=== PATIENT | female | born 1960 ===

== ENCOUNTER 2025-02-14 16:50 | Emergency (ER) | payer OTHER, SELFPAY ==
[2025-02-14 17:26] LABS: % Basophils 0.3 % (0-2); % Eosinophils 0.3 % (0-6); % Immature Granulocytes 0.4 % (0-0.5); % Lymphocytes 30.9 % (20.5-51.1); % Monocytes 5.8 % (1.7-9.3); % Neutrophils 62.3 % (42.2-75.2); Absolute Lymphocytes 2.3 10^3/uL (1.2-3.4); Absolute Monocytes 0.4 10^3/uL (0.1-0.6); Absolute Neutrophils 4.7 10^3/uL (1.4-6.5); Hematocrit 39.5 % (37.0-47.0); Hemoglobin 13.7 g/dL (12.0-16.0); Mean Corp Hgb Conc. 34.7 g/dL (33.0-37.0); Mean Corpuscular Hgb 29.2 pg (27.0-31.0); Mean Corpuscular Volume 84.2 fL (81.0-99.0); Mean Platelet Volume 10.4 fL (7.4-10.4); Nucleated Red Blood Cells % 0 %; Platelet Count 245 10^3/uL (130-400); Red Blood Cell Count 4.69 10^6/uL (4.20-5.40); Red Cell Dist. Width 13.2 % (11.5-14.5); White Blood Cell Count 7.6 10^3/uL (4.8-10.8)
[2025-02-14 17:38] LABS: APTT 25.4 Sec (23.4-35.0)
[2025-02-14 17:44] LABS: ALT (SGPT) 24 U/L (0-35); AST (SGOT) 25 U/L (14-36); Albumin 4.6 g/dl (3.5-5.0); Alkaline Phosphatase 113 U/L (38-126); Blood Urea Nitrogen 18 mg/dl (7-17); Calcium 9.7 mg/dl (8.4-10.2); Carbon Dioxide 22 mmol/L (22-30); Chloride 109 mmol/L (98-107); Glucose 94 mg/dl (70-99); Potassium 3.9 mmol/L (3.5-5.1); Sodium 140 mmol/L (135-145); Total Bilirubin 0.6 mg/dl (0.2-1.3); Total Protein 7.1 g/dl (6.3-8.2); eGFR > 60.00
[2025-02-14 17:55] LABS: Troponin I 0.017 ng/ml
--- NOTE | 2025-02-14 18:50 | ED.GENMED ---
History of Present Illness
General
Chief Complaint: Chest Pain
Source: patient
Exam Limitations: none
Time Seen by Provider: 02/14/25 18:49
Nursing documentation reviewed up to this point in time: agreed with except (abdominal pain, not chest pain)
History of Present Illness
History of Present Illness:
65-year-old female with history of HTN, HLD states 10 a.m. sitting at desk at work, sudden onset pain wrapping around her entire mid abdomen and mid back, Ibuprofen 600 mg helped.
At 3:30 p.m pain returned, worse, screaming in pain, deep breaths made pain worse, 10/10, took Ibuprofen and now pain is 3/10. Denies n/v/d/c. Denies UTI symptoms. Denies fever/chills.
Past History
Past History
ED Past Medical History: HTN and Hypercholesterolemia
ED Past Surgical History: Other (cataract surgery)
Social History
Tobacco: Non-smoker
Alcohol: None
Living: alone
Employment: Employed
Review of Systems
Review of Systems
Allergies reviewed?: Yes
All Other Systems: ROS reviewed and negative except as documented in HPI and ROS
Constitutional: Denies fever or chills
Respiratory: Denies trouble breathing
Cardiac: Denies chest pain, diaphoresis or palpitations
ABD/GI: Reports abdominal pain (initially wrapped around entire torso, now in LLQ and left flank); Denies nausea, vomiting, diarrhea or constipated
: Denies dysuria, frequency, difficulty voiding or urgency
Musculoskeletal: Reports no symptoms
Skin: Reports no symptoms
Neurological: Reports no symptoms
Phy Exam
Physical Exam
Physical Exam:
GENERAL: No acute distress. A&Ox3.
CONSTITUTIONAL: Afebrile.
EYES: clear, conjunctivae normal
ENMT: moist mucus membranes
RESPIRATORY: Regular respirations, nonlabored, lungs clear.
CARDIOVASCULAR: Regular rate and rhythm, no murmurs, no rubs.
GI: Soft, mainly tender left lower quadrant, otherwise minimally tender generally about the abdomen, normal BS
MUSCULOSKELETAL: Moves with ease. Well perfused.
SKIN: Warm, dry, pink
PSYCH: Normal mood and affect. Well kept, interactive and appropriate
NEUROLOGIC: Awake, alert and oriented. No focal neurological deficits
Scores
Heart Score for Chest Pain Patients
STEMI patient?: Not applicable
Course
Orders/Labs/Results
Orders:
Orders
02/14/25 16:54
EKG [Electrocardiogram (*1)] Urgent
Reason for Study: Chest Pain
02/14/25 16:55
EKG- Treatment ONCE
02/14/25 17:04
EKG [Electrocardiogram (*1)] Urgent
Reason for Study: Tachycardia
EKG- Treatment ONCE
02/14/25 17:17
Complete Blood Count/With Diff Urgent
Comprehensive Metabolic Panel Urgent
Lipase Urgent
Comment: ADD ON
PTT Urgent
Troponin I Urgent
Comment: ADD ON
02/14/25 17:32
Add On- LAB Urgent
Comments:: please take from [facility]- lab said they could
Tests Added?: troponin- take from [facility]- lab said it was okay
02/14/25 19:01
Add On- LAB Urgent
Tests Added?: Lipase
02/14/25 19:02
CT Abd/Pel (IV only)-[facility] only Urgent
Comment:
Reason For Exam: pain wrap around abd and back, now just LLQ/flank
02/14/25 20:58
Urinalysis Reflex To Culture Urgent
Date Specimen was Collected: 02/14/25
Time Specimen was Collected: 20:56
Urine Microscopic Reflex Cult Urgent
02/14/25 22:05
Cyclobenzaprine HCl [Flexeril] 10 mg PO NOW STA
02/14/25 22:47
Ketorolac [Toradol] 30 mg IM NOW STA
Abnormal Lab Results
02/14/25 02/14/25
17:17 20:58
Chloride 109 H mmol/L
(98-107)
BUN 18 H mg/dl
(7-17)
Ur Occult Blood Reflex 2+ A
(Negative)
02/14/25 17:17
02/14/25 17:17
Vital Signs
Initial and Last Documented VS:
Initial Vital Signs
Pulse Pulse Ox
56 99
02/14/25 18:29 02/14/25 18:29
Last Documented Vital Signs
Temp Pulse Resp BP Pulse Ox
97.8 F 58 16 139/71 99
02/14/25 21:55 02/14/25 20:04 02/14/25 21:55 02/14/25 22:00 02/14/25 21:59
MDM/Problems Addressed
Differential Diagnosis Includes:
cholecystitis, biliary colic, kidney stone, diverticulitis.
MDM/Problems Addressed:
65-year-old female with history of HTN, HLD states 10 a.m. sitting at desk at work, sudden onset pain wrapping around her entire mid abdomen and mid back, Ibuprofen 600 mg helped.
At 3:30 p.m pain returned, worse, screaming in pain, deep breaths made pain worse, 10/10, took Ibuprofen and now pain is 3/10. Denies n/v/d/c. Denies UTI symptoms. Denies fever/chills.
Afebrile, NAD
EKG NSR
CBC, CMP normal
Troponin normal
9:[address] abd/pelvis w IV contrast radiology report read: No significant acute abnormality identified in the abdomen or pelvis, as described above.
Pt states she started doing 'bar' exercises 3 days ago. Lots of twisting and bending torso
She has been pain free since arrival
10:45 p.m.
Just prior to leaving, developed spasm left flank area, had to lay down 'I can't breathe,' Reassured, this is most likely musculoskeletal pain, Flexeril given, Toradol IM given
11:05
After Toradol and Flexeril, pt ambulating well, pain much improved. ambulated out with normal gait with husbad
Chronic conditions affecting care: HTN
*EKG
EKG Intrepretation Date: 02/14/25
Interpretation: normal
Heart Rate: 60
Rate: normal
Rhythm: sinus
[place]: normal axis
Interval: normal interval
QRS Pattern: normal QRS
Ischemia: no ischemia
*Critical Care Note
Total Time (30-74mins, 75-104mins- exclusive of procedures): Not Applicable
ED Attending Note
-
Portions of this chart may have been created with voice recognition software.� Occasional wrong word or��sound alike� substitutions may have occurred due to the inherent limitations of voice recognition software.
Discharge Plan
Departure
Patient Disposition: Home (Routine Discharge)
Date of Disposition: 02/14/25
Time of Disposition: 22:02
Patient with high blood pressure during this ER visit?: No
Condition: Good
Discharge Problem:
Abdominal pain, Acute thoracic back pain
Instructions: Abdominal pain in adults - Discharge instructions, Back Pain, Musculoskeletal Pain
Referrals:
Everton Jessica MD [Family Provider] - As needed
Activity Restrictions/Additional Instructions:
As we discussed, there is nothing worrisome in your workup here today.
You may have strained the thoracic muscles with your workouts. No workouts for the rest of the week.
Continue ibuprofen as needed since it helped.
See your doctor in 2-3 days if you still have pain.
Interventions
Interventions:
*Risk Screen - Suicide Last Done: 02/14/25 17:00
*General Assessment Last Done: 02/14/25 17:00
*Neglect/Abuse Screening Last Done: 02/14/25 17:00
*ED- Fall Risk Assessment Last Done: 02/14/25 17:00
*ED COVID-19 Vaccine History Last Done: 02/14/25 17:00
*Nursing Disposition Last Done: 02/14/25 22:54
ED- Cardiac Assessment Last Done: 02/14/25 18:42
Discharge Date and Time
Discharge Date/Time: 02/14/25 23:02
Print Language: MALDIVIAN
[2025-02-14 19:29] VITALS: BP 153/72
[2025-02-14 19:33] LABS: Lipase 159 U/L (23-300)
[2025-02-14 20:04] VITALS: BP 114/74
[2025-02-14 21:11] LABS: Urine Albumin Negative (Neg - Trace); Urine Bilirubin Negative (Negative); Urine Character Clear (Clear); Urine Color Yellow; Urine Glucose Negative (Negative); Urine Ketone Negative (Negative); Urine Leukocyte Negative (Negative); Urine Nitrite Negative (Negative); Urine Occult Blood 2+ (Negative); Urine Urobilinogen Negative (Neg - 1+)
[2025-02-14 21:26] LABS: Urine Red Blood Cell 0-2 /HPF (0-2); Urine White Cell 0-2 /HPF (0-5)
[2025-02-14 21:42] VITALS: BP 145/59
[2025-02-14 22:00] VITALS: BP 139/71
[2025-02-14] MEDS: FLEXERIL 10 MG PO (22:34)
[2025-02-14] MEDS: TORADOL 30 MG IM (22:49)
== END 2025-02-14 23:02 | disposition home or self-care (01) ==
LOC: EMR 16:50
PROVIDERS: Registered Nurse; Student in an Organized Health Care Education/Training Program; EMERGENCY PHYSICIAN Emergency Medicine; FAMILY PHYSICIAN Internal Medicine
DX: R10.9 Unspecified abdominal pain (principal); M54.6 Pain in thoracic spine; I10 Essential (primary) hypertension; E78.00 Pure hypercholesterolemia, unspecified
CPT/HCPCS: 99285; 96372; 74177; 80053; 81003; 81015; 83690; 84484; 85025; 85730; 93005; Q9967